=== PATIENT | male | born 2005 | race Caucasian/White ===

== ENCOUNTER 2025-07-14 13:40 | Emergency (ER) | payer BC, SELFPAY ==
[2025-07-14 13:56] VITALS: BP 133/89; PULSE 69; RESP 16; TEMP 36.9; O2SAT 99
--- NOTE | 2025-07-14 14:15 | ED.URI ---
HPI - URI/Sore Throat General Chief Complaint: Upper Respiratory Infection Stated Complaint: SINUS CONGESTION/SOB Time Seen by Provider: 07/14/25 14:15 Source: patient and RN notes reviewed Mode of arrival: ambulatory Limitations: no limitations History of Present Illness HPI Narrative: 20-year-old male presented for complaint of cough, nasal congestion, drainage, and sinus pressure. Onset 2 days. Says cough is better today. Has not taken anything for symptoms. Denies shortness of breath, wheezing nausea vomiting diarrhea, fevers or lethargy. Pt resides in [place]. MD elicited complaint: cough Related Data Allergies Allergy/AdvReac Type Severity Reaction Status Date / Time No Known Allergies Allergy Verified 07/14/25 13:55 Review of Systems Review of Systems: CONSTITUTIONAL: Denies malaise, body aches, chills, sweats, fever EYES: Denies visual changes, redness, or discharge ENT: Reports rhinorrhea, congestion, sinus pain, denies otalgia, sore throat CARDIOVASCULAR: Denies chest pain, palpitations, edema RESPIRATORY: Reports cough, post nasal drainage. Denies dyspnea GASTROINTESTINAL: Denies abdominal pain, nausea, vomiting, diarrhea SKIN: Denies rash or itching NEUROLOGIC: Denies headache Exam Narrative: GENERAL: mildly Ill-appearing, nontoxic no acute distress. EYES: conjunctivae clear ENT: Mucous membranes moist. Nasal congestion noted. TM pearly kee with dull light reflex bilaterally; no tragal tenderness. Oropharynx not erythematous without lesions or exudate, no drooling, no hoarseness, no trismus, uvula midline. CHEST: Clear to auscultation, breath sounds equal. No wheezing, rhonchi, rales, or stridor. No respiratory distress, speaks in full sentences. HEART: Regular rate and rhythm. No murmur heard. SKIN: Warm, dry, no rash. NEURO: Alert and oriented x3. PSYCH: Normal mood and affect Course Course Emergency Course: Patient is aware of diagnosis, understands and agrees to treatment plan. Anticipatory guidance given. Patient agrees to follow-up as directed and is aware of reasons to seek care at the emergency department. Portions of this record may have been created with voice recognition software Level of Care: Express Care Visit Vital Signs Vital signs: Vital Signs Temperature 98.5 F 07/14/25 13:56 Pulse Rate 69 07/14/25 13:56 Respiratory Rate 16 10/05/25 13:56 Blood Pressure 133/89 07/14/25 13:56 Pulse Oximetry 99 07/14/25 13:56 Temperature 98.5 F 07/14/25 13:56 Pulse Rate 69 07/14/25 13:56 Respiratory Rate 16 07/14/25 13:56 Blood Pressure 133/89 07/14/25 13:56 Pulse Oximetry 99 07/14/25 13:56 reviewed MDM - URI/Sore Throat MDM Narrative Medical decision making narrative: Discussed physical exam findings c/w viral URI. Advised supportive measures and signs/symptoms to go to the ER. Pt is appropriate for outpt treatment and f/u. Differential Diagnosis Differential diagnosis: Likely upper respiratory infection, sinusitis and viral infection Discharge Plan Discharge Clinical Impression: Upper respiratory infection Patient Disposition: Home Condition: Stable Instructions: Antibiotic Form, Upper Respiratory Infection (ED) Additional Instructions: Recommendations: Flonase spray and Zyrtec-D over the counter Cough syrup may cause drowsiness; avoid driving or take it at night time. Tylenol 1000mg every 8 hours as needed for pain Symptomatic treatment includes: rest, fluids, and increase humidity of the air at home. Follow up with your primary care provider in 1 week. Go to the ER for worsening symptoms or concerns. Patient Language: [place] Prescriptions: New benzonatate 200 mg capsule 200 mg PO TID PRN (Reason: cough) Qty: 20 0RF prednisone 20 mg tablet 40 mg PO DAILY 4 Days Qty: 8 0RF Follow-up/Referrals: PHYSICIAN,COVER SEAMER [Primary Care Provider, Internal Medicine] Time of Disposition: 14:21
[2025-07-14 14:18] LABS: EDCOVIDSCREEN Negative (Negative); EDINFLUASCREEN Negative (Negative); EDINFLUBSCREEN Negative (Negative)
== END 2025-07-14 14:23 | disposition home or self-care (01) ==
PROVIDERS: Emergency Provider Nurse Practitioner Family
DX: J06.9 Acute upper respiratory infection, unspecified (principal); Z20.822 Contact with and (suspected) exposure to COVID-19
CPT/HCPCS: 87426; 87804; 99203; G0463